=== PATIENT | male | born 1990 | race Hispanic/Latino ===

== ENCOUNTER 2020-10-02 21:39 | Emergency (ER) | payer OTHER ==
[2020-10-02] MEDS ORDERED: Boostrix 0.5 ML (Tdap) VIAL ONE (22:05)
== END 2020-10-02 22:25 | disposition home or self-care (01) ==
LOC: CSHERS 21:39
DX: S01.25XA Open bite of nose, initial encounter (principal); S01.21XA Laceration without foreign body of nose, initial encounter; Z23 Encounter for immunization; Y04.1XXA Assault by human bite, initial encounter
CPT/HCPCS: 12011; 90471; 90715